=== PATIENT | male | born 1935 | race African-American/Black ===

== ENCOUNTER 2019-10-17 14:24 | Emergency (ER) | payer MEDICARE, SELFPAY ==
--- NOTE | 2019-10-17 14:50 | XR_ITS ---
PROCEDURE: XR KNEE RT 3V CLINICAL INDICATION: pain COMPARISON: 01/07/2013 FINDINGS: There is mild degenerative narrowing of the lateral compartment. There is ossification of the quadriceps tendinous insertion into the patella. Joint spaces are intact. There is no fracture or dislocation. IMPRESSION: Mild degenerative changes as above, no fracture. Dictated by: Cesar Linder 10/17/2019 16:20 Electronically signed by Cesar Linder in [place] 10/17/2019 16:20
[2019-10-17 14:53] VITALS: BP 147/91; PULSE 72; RESP 19; TEMP 36.8; O2SAT 99; BMI 23.8
--- NOTE | 2019-10-17 15:22 | HMH.EDUTC ---
[facility] [place] Disposition Clinical Impression: Pseudogout Disposition: Home, Self-Care Condition on Discharge: Good Instructions: Gout (Alternative Therapy), Gout, DI for Gout, DI for Arthritis Additional Instructions: Take medication as prescribed *Return if needed Straight to ER if any life threatening symptoms Follow up with Family Doctor if no improvement or any worsening of symptoms Prescriptions: methylPREDNISolone [Medrol 4mg tab] 4 mg PO DIRECTED #21 tab Transmission Status: Received by [facility] Referrals: Provider,Referral, MD [Primary Care Provider] - As needed Time of Disposition: 16:25 Medical Decision Making - Jean Pierre Inquiry Pt receiving controlled substance: No Jean Pierre was queried for this patient: No Vital Signs: 10/17/19 14:53 Temperature 98.2 F Temperature Source Oral Pulse Rate [Right Brachial] 72 Respiratory Rate 19 Blood Pressure [Right Arm] 147/91 H Blood Pressure Mean [Right Arm] 109 Blood Pressure Source [Right Arm] Automatic Cuff Blood Pressure Position [Right Arm] Sitting 02 Sat by Pulse Oximetry 99 Oxygen Delivery Method Room Air - Lab Data Lab results reviewed: Yes: I reviewed the patient's lab results. Lab Results 10/17/19 15:50: Uric Acid 6.5 Orders (Tests/Meds): ED MEDICATIONS Discontinued Medications Generic Name Dose Route Start Last Admin Trade Name Freq PRN Reason Stop Dose Admin Methylprednisolone Sodium Succinate 125 mg 10/17/19 16:22 10/17/19 16:32 Solu-Medrol 125mg/2ml Vial IM 10/17/19 16:23 125 mg ONCE ONE Administration - Radiology Data #1 Image(s): Knee Image Reviewed: Yes I reviewed the patient's radiology image Preliminary Findings: No Fracture Seen Degenerative changes [facility] [place] HPI - General Stated complaint: knee pain Time Seen by Provider: 10/17/19 15:22 Mode of Arrival: Ambulatory Source of Information: Patient Limitations: No Limitations Description of Symptoms (Recalled from Triage Doc. by RN): PATIENT C/O RIGHT KNEE PAIN SINCE THIS MORNING HEENT Symptoms (Recalled from RN notes): No Resp Symptoms (Recalled from RN notes): No Skin Symptoms (Recalled from RN notes): No MS Symptoms (Recalled from RN notes): Yes Functional Status (Recalled from RN notes): WNL - History of Present Illness Provider Complaint: Patient states that he woke up this morning with pain in his right knee States that he is not sure if he hurt it of if he has gout again States that he has had gout in the past and felt like it does now States that he had to have a shot and pills last time to get it better and wants that again States that he has been having pain when he tries to stand on it and walk Denies known injury - Related Data Previous Rx's Medication Instructions Recorded methylPREDNISolone [Medrol 4mg 4 mg PO DIRECTED #21 tab 10/17/19 tab] Allergies Allergy/AdvReac Type Severity Reaction Status Date / Time No Known Allergies Allergy Verified 10/17/19 14:56 - Worker's Comp Is this a Worker's Comp case?: No [facility] History - Hepatitis A Screen Drug use history?: No High risk sexual behaviors?: No History of sexually transmitted infection?: No Currently employed?: No Childcare worker?: No Do you have indoor plumbing?: Yes Do you have electricity?: Yes Attestation statement:: This patient has been screened for Hepatitis A risk factors. I have reviewed the patient's past medical history: Yes Medical History: Reports:: Diabetes Mellitus Type 2 - Social History Alcohol Intake: never Occupational Status: other ROS Obtained: Yes All systems reviewed & no additional complaints, Yes Systems reviewed as appropriate & no additional complaints - Allergic/Immunologic Comments: Pain in right knee that started this morning Physical Exam - General General appearance: alert, in no apparent distress - Respiratory Respiratory exam: Present: normal lung sounds bilaterally. Absent: respiratory d
[2019-10-17 16:10] LABS: Uric Acid 6.5 mg/dl (3.5-8.5)
[2019-10-17 16:41] VITALS: BP 147/91; PULSE 72; RESP 19; TEMP 36.8; O2SAT 99
== END 2019-10-17 16:42 | disposition home or self-care (01) ==
PROVIDERS: Emergency Provider Nurse Practitioner
DX: M11.261 Other chondrocalcinosis, right knee (principal); E11.9 Type 2 diabetes mellitus without complications
CPT/HCPCS: G0463; 73562; 84550; 96372; 99202

== ENCOUNTER 2020-01-23 19:36 | Emergency (ER) | payer MEDICARE, SELFPAY ==
--- NOTE | 2020-01-23 19:55 | CT_ITS ---
PROCEDURE: CT ABDOMEN PELVIS WO CON CLINICAL INDICATION: hernia inguinal inguinal hernia, difficulty urinating, COMPARISON: No exams were available for comparison TECHNIQUE: Axial images obtained with sagittal and coronal reformats. All CT scans at the facility use one or more dose reduction, viz: automated exposure control, ma/kV adjustment per patient size (including targeted exams where dose is matched to indication, i.e. head), or iterative reconstruction technique. FINDINGS: LOWER THORAX: There are mild atelectatic changes in the lung bases. Small subpleural opacity is present in the right middle lobe anteriorly nonspecific at 5 mm. Coronary artery calcifications are present. There is gynecomastia. ABDOMEN & PELVIS: The right hemidiaphragm is elevated. There is a small hiatal hernia. The liver, spleen, adrenal glands, and pancreas have an unremarkable unenhanced appearance. There are numerous bilateral renal cyst. The largest cyst on the right is 9.9 cm. The largest cyst on the left is 5.6 cm. Motion artifact obscures fine detail. No renal or ureteral calculi. There is a mild amount of retained colonic feces with extensive colonic diverticulosis the involving the descending and sigmoid colon. No evidence of diverticulitis. No evidence of appendicitis. There is a small umbilical hernia containing fat. There is a fusiform infrarenal abdominal aortic aneurysm measuring up to 4 cm and. 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 Bilateral hip osteoarthritis. There is some fat and soft tissue density within the inguinal canals on both sides. IMPRESSION: 1. No acute abdominal or pelvic findings. 2. There is thickening of the spermatic cord with fat and soft tissue density within the inguinal canals on both sides. However, a definite inguinal hernia is not demonstrated. There is a small umbilical hernia. 3. Enlarged prostate 4. Colonic diverticulosis without diverticulitis. 5. Aneurysmal dilatation of the aortoiliac vessels Dictated by: Sha Espinosa MD 01/25/2020 08:30 Sha Espinosa MD in [place] 01/25/2020 08:30
--- NOTE | 2020-01-23 19:57 | HMH.EDABDPAI ---
ED Disposition Condition on Discharge: Undetermined - Critical Care Critical Care Time: No <Tony Cabral - Last Filed: 01/23/20 19:57> Condition on Discharge: Good <Handy Hays - Last Filed: 01/23/20 22:04> Clinical Impression: AAA (abdominal aortic aneurysm) without rupture, Renal insufficiency, Prostate hypertrophy UTI (urinary tract infection) Qualifiers: Urinary tract infection type: site unspecified Hematuria presence: without hematuria Qualified Code(s): N39.0 - Urinary tract infection, site not specified Clinical Impression: (Ruled Out): Inguinal hernia Disposition: Home, Self-Care Instructions: DI for Acute Abdomen Additional Instructions: please call and see pcp and urology - Prescriptions: levoFLOXacin [Levaquin 500mg tab] 500 mg PO DAILY #7 tab Transmission Status: Pending to [facility] Referrals: PCP,Marisela [Primary Care Provider] - Kristian Cook MD [Staff Physician] - Attestation: On 01/23/20, the high probability of a clinically significant, sudden or life threatening deterioration of the following system(s) required my full and direct attention, intervention and personal management. The time I documented below is in addition to time spent performing reported procedures but includes the following listed in this critical care notation. Medical Decision Making - Jean Pierre Inquiry Pt receiving controlled substance: No <Tony Cabral - Last Filed: 01/23/20 19:57> - Lab Data Lab results reviewed: Yes: I reviewed the patient's lab results. Result diagrams: 01/23/20 20:05 01/23/20 20:05 - CT Data CT Scan: Abdomen, Pelvis Time Received: 21:[address] Reviewed: Yes: I have viewed the radiologist's interpretation Preliminary Findings: Abnormal (see report ) <Handy Hays - Last Filed: 01/23/20 22:04> Vital Signs: 01/23/20 20:10 01/23/20 20:37 01/23/20 21:00 Temperature 98.4 F Temperature Source Oral Pulse Rate [Right] 76 66 68 Respiratory Rate 16 18 18 Blood Pressure [Right Arm] 182/57 H 162/87 H 173/83 H Blood Pressure Mean [Right Arm] 98 112 113 Blood Pressure Source [Right Arm] Automatic Cuff Blood Pressure Position [Right Arm] Sitting 02 Sat by Pulse Oximetry 100 99 99 Oxygen Delivery Method Room Air Room Air 01/23/20 21:58 Temperature Temperature Source Pulse Rate [Right] 70 Respiratory Rate 18 Blood Pressure [Right Arm] 164/85 H Blood Pressure Mean [Right Arm] 111 Blood Pressure Source [Right Arm] Blood Pressure Position [Right Arm] 02 Sat by Pulse Oximetry 100 Oxygen Delivery Method - Lab Data Lab Results 01/23/20 20:05: WBC 9.2, RBC 4.68, Hgb 14.1, Hct 42.3, MCV 90.3, MCH 30.0, MCHC 33.3, RDW 14.9, Plt Count 238, MPV 8.4, Neut % (Auto) 85.9 H, Lymph % (Auto) 8.8 L, [place] % (Auto) 4.7, Eos % (Auto) 0.2, Baso % (Auto) 0.4, Neut # (Auto) 7.9 H, Lymph # (Auto) 0.8, [place] # (Auto) 0.4, Eos # (Auto) 0.0, Baso # (Auto) 0.0, Total Counted 100, Neutrophils % (Manual) 90 H, Band Neutrophils % 4.0, Lymphocytes % (Manual) 5 L, Eosinophils % (Manual) 1, Platelet Estimate Normal, RBC Morphology Normal 01/23/20 20:05: Sodium 137, Potassium 4.8, Chloride 101, Carbon Dioxide 27, Anion Gap 13.8, BUN 41 H, Creatinine 1.80 H, Estimated Creat Clear 25, Estimated GFR 36 L, Est GFR ( Amer) 44 L, Glucose 129 H, Calcium 10.2, Total Bilirubin 0.5, AST 39, ALT 13, Alkaline Phosphatase 84, Total Protein 8.1, Albumin 4.7, Globulin 3.4 H, Albumin/Globulin Ratio 1.4 01/23/20 20:05: Lactate 0.7 01/23/20 21:30: Urine Color Yellow, Urine Appearance Clear, Urine pH 5.5, Ur Specific [place] 1.025, Urine Protein 2+, Urine Glucose (UA) Negative, Urine Ketones Negative, Urine Blood 1+, Urine Nitrate Negative, Urine Bilirubin Negative, Urine Urobilinogen 0.2, Ur Leukocyte Esterase Negative, Urine RBC 5-10, Urine WBC 10-20, Ur Squamous Epith Cells 3-5 Orders (Tests/Meds): ED MEDICATIONS Generic Name Dose Route Start Last Admin Trade Name Freq PRN Reason Stop Do
[2020-01-23 20:10] VITALS: BP 182/57; PULSE 76; RESP 16; TEMP 36.9; O2SAT 100; BMI 21.6
[2020-01-23 20:16] LABS: Basophils % 0.4 % (0.1-2.0); Eosinophils % 0.2 % (0.1-12.0); Hematocrit 42.3 % (42.0-52.0); Hemoglobin 14.1 g/dL (14.1-18.0); Lymphocytes # 0.8 K/mm3 (0.7-4.5); Lymphocytes % 8.8 % (10-50); Mean Corpuscular HGB Conc 33.3 g/dL (31.8-35.4); Mean Corpuscular Volume 90.3 fl (80-94); Mean Platelet Volume 8.4 fl (7.4-10.4); Monocytes # 0.4 K/mm3 (0.1-1.0); Monocytes % 4.7 % (1.7-9.3); Neutrophils # 7.9 K/mm3 (1.8-7.8); Neutrophils % 85.9 % (37.0-80.0); Platelet Count 238 K/mm3 (142-424); Red Blood Count 4.68 M/mm3 (4.60-6.20); Red Cell Distribution Width 14.9 % (11.5-17.5); White Blood Count 9.2 K/mm3 (4.8-10.8)
[2020-01-23 20:21] LABS: MANUAL DIFFERENTIAL MANUAL DIFFERENTIAL (MANUAL DIFF)
[2020-01-23 20:24] LABS: Alanine Aminotransferase 13 U/L (12-78); Albumin Level 4.7 g/dl (3.5-5.0); Albumin/Globulin Ratio 1.4 (1.1-1.8); Alkaline Phosphatase 84 U/L (38-126); Anion Gap 13.8 mEq/L (5-15); Aspartate Amino Transferase 39 U/L (17-59); Bilirubin,Total 0.5 mg/dl (0.2-1.3); Blood Urea Nitrogen 41 mg/dl (9-20); Calcium 10.2 mg/dl (8.4-10.2); Carbon Dioxide 27 mmol/L (22.0-30.0); Chloride 101 mmol/L (98-107); Creatinine Clearance Estimated 25 mL/min (50-200); Estimated Glomerular Filt Rate 36 ml/min (>60); GFR (African American) 44 ML/MIN (>60); Globulin 3.4 g/dL (1.3-3.2); Glucose 129 mg/dl (74-100); Potassium 4.8 mmoL/L (3.5-5.1); Sodium 137 mmol/L (136-145); Total Protein,Serum 8.1 g/dl (6.3-8.2)
[2020-01-23 20:25] LABS: Lactic Acid 0.7 mmol/L (0.7-2.1)
[2020-01-23 20:37] VITALS: BP 162/87; PULSE 66; RESP 18; O2SAT 99
[2020-01-23 20:51] LABS: Eosinophils % 1 % (0-3); Lymphocytes % 5 % (10-50); Neutrophils % 90 % (42-76); Platelet Estimate Normal; RBC Morphology Normal; Total Cells Counted 100
[2020-01-23 21:00] VITALS: BP 173/83; PULSE 68; RESP 18; O2SAT 99
[2020-01-23 21:37] LABS: Microscopic, Urine URINE MICROSCOPIC (MICROSCOPIC)
[2020-01-23 21:46] LABS: Appearance,Urine CLEAR (Clear); Bilirubin,Urine Negative (Negative); Blood, Urine 1+ (Negative); Color,Urine YELLOW (Yellow); Glucose,Urine (UA) Negative (Negative); Ketones,Urine Negative (Negative); Leukocyte Esterase,Urine Negative (Negative); Nitrate,Urine Negative (Negative); PH,Urine 5.5 (5.0-8.5); Protein,Urine 2+ (Negative); Specific Gravity, Urine 1.025 (1.005-1.030); Urobilinogen,Urine 0.2 EU/dl (0.2)
[2020-01-23 21:58] VITALS: BP 164/85; PULSE 70; RESP 18; O2SAT 100
[2020-01-23 22:15] VITALS: BP 164/75; PULSE 68; RESP 16; TEMP 36.9; O2SAT 99
== END 2020-01-23 22:19 | disposition home or self-care (01) ==
PROVIDERS: Emergency Medicine; Emergency Provider Student in an Organized Health Care Education/Training Program
DX: I71.4 Abdominal aortic aneurysm, without rupture (principal); N28.9 Disorder of kidney and ureter, unspecified; N40.0 Benign prostatic hyperplasia without lower urinary tract symptoms; E11.9 Type 2 diabetes mellitus without complications; N39.0 Urinary tract infection, site not specified; Z79.899 Other long term (current) drug therapy
CPT/HCPCS: 74176; 80053; 81001; 83605; 85007; 85025; 87086; 96365; 96375; 99284; J2405

== ENCOUNTER → 2020-01-26 12:51 | Outpatient (CLI) | payer MEDICARE, SELFPAY ==
[2020-01-26 13:13] LABS: Basophils % 0.1 % (0.1-2.0); Eosinophils % 0.5 % (0.1-12.0); Hematocrit 41.6 % (42.0-52.0); Hemoglobin 13.5 g/dL (14.1-18.0); Lymphocytes # 1.1 K/mm3 (0.7-4.5); Lymphocytes % 13.1 % (10-50); Mean Corpuscular HGB Conc 32.4 g/dL (31.8-35.4); Mean Corpuscular Hemoglobin 29.9 pg (27.0-31.2); Mean Corpuscular Volume 92.5 fl (80-94); Mean Platelet Volume 8.3 fl (7.4-10.4); Monocytes # 0.5 K/mm3 (0.1-1.0); Monocytes % 5.7 % (1.7-9.3); Neutrophils # 6.5 K/mm3 (1.8-7.8); Neutrophils % 80.6 % (37.0-80.0); Platelet Count 233 K/mm3 (142-424); Red Blood Count 4.49 M/mm3 (4.60-6.20); Red Cell Distribution Width 14.8 % (11.5-17.5); White Blood Count 8.1 K/mm3 (4.8-10.8)
[2020-01-26 14:42] LABS: Alanine Aminotransferase 12 U/L (12-78); Albumin Level 4.1 g/dl (3.5-5.0); Albumin/Globulin Ratio 1.5 (1.1-1.8); Alkaline Phosphatase 61 U/L (38-126); Anion Gap 14.7 mEq/L (5-15); Aspartate Amino Transferase 37 U/L (17-59); Bilirubin,Total 0.5 mg/dl (0.2-1.3); Blood Urea Nitrogen 43 mg/dl (9-20); Carbon Dioxide 25 mmol/L (22.0-30.0); Chloride 104 mmol/L (98-107); Estimated Glomerular Filt Rate 32 ml/min (>60); GFR (African American) 39 ML/MIN (>60); Globulin 2.8 g/dL (1.3-3.2); Glucose 105 mg/dl (74-100); Potassium 4.7 mmoL/L (3.5-5.1); Sodium 139 mmol/L (136-145); Total Protein,Serum 6.9 g/dl (6.3-8.2)
[2020-01-28 13:19] LABS: PSA, Free 4.85 ng/mL; Prostate Specific Ag 49.1 ng/mL (0.0-4.0)
== END ==
PROVIDERS: Visit Provider Urology
DX: N40.2 Nodular prostate without lower urinary tract symptoms (principal); M11.20 Other chondrocalcinosis, unspecified site
CPT/HCPCS: 36415; 80053; 84153; 84154; 85025

== ENCOUNTER 2020-11-16 09:31 | Emergency (ER) | payer MEDICARE, SELFPAY ==
[2020-11-16 09:32] VITALS: BP 157/76; PULSE 65; RESP 18; TEMP 36.8; O2SAT 97; BMI 25.1
--- NOTE | 2020-11-16 09:43 | CT_ITS ---
PROCEDURE: CT ABDOMEN PELVIS WO CON CLINICAL INDICATION: abdominal pain Bright red clots in stool COMPARISON: CT CT ABDOMEN PELVIS WO CON from 01/23/2020 TECHNIQUE: Axial images obtained with sagittal and coronal reformats. All CT scans at the facility use one or more dose reduction, viz: automated exposure control, ma/kV adjustment per patient size (including targeted exams where dose is matched to indication, i.e. head), or iterative reconstruction technique. FINDINGS: LOWER THORAX: No acute finding ABDOMEN & PELVIS: The liver, spleen, gallbladder, and adrenal glands have an unremarkable appearance. There are low bilateral renal cysts the largest cyst on the right at 10 cm not significantly changed. No renal calculi apparent. There is an infrarenal abdominal aortic aneurysm which measures 3.5 cm transverse and 4.2 cm AP. The aorta is 3 cm at its bifurcation. There is dilatation of the proximal common iliacs at 2.3 cm on the right and 2.3 cm on the left. The measurements of the aortic aneurysm and the dilated iliacs are not significantly changed. There is no evidence of acute retroperitoneal hemorrhage. Stomach is slightly distended with retained food products and or secretions. Unremarkable appearing pancreas. No renal calculi or hydronephrosis. No evidence of appendicitis. There is colonic diverticulosis but no evidence of diverticulitis. No evidence of small-bowel obstruction. No free air. No pelvic mass or abnormal pelvic fluid collection. The prostate is prominent at 4.8 cm. There are surgical clips in the right inguinal region. There is mild diffuse thickening of the urinary bladder wall. Postsurgical changes are present from prior laminectomy and inter pedicular screw placement at L3-L4 and L5. No lytic or blastic changes. IMPRESSION: 1. 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 2. Diffuse colonic diverticulosis. No evidence of diverticulitis. 3. There is mild urinary bladder wall thickening which may be seen with incomplete distension, chronic outflow obstruction, or cystitis. Dictated by: Sha Espinosa MD 11/16/2020 10:54 Sha Espinosa MD in [place] 11/16/2020 10:54
[2020-11-16 10:05] LABS: Basophils % 0.1 % (0.1-2.0); Eosinophils % 0.6 % (0.1-12.0); Hematocrit 36.7 % (42.0-52.0); Hemoglobin 11.1 g/dL (14.1-18.0); Lymphocytes # 1.1 K/mm3 (0.7-4.5); Lymphocytes % 19.1 % (10-50); Mean Corpuscular HGB Conc 30.4 g/dL (31.8-35.4); Mean Corpuscular Hemoglobin 27.3 pg (27.0-31.2); Mean Corpuscular Volume 89.8 fl (80-94); Mean Platelet Volume 8.4 fl (7.4-10.4); Monocytes # 0.4 K/mm3 (0.1-1.0); Monocytes % 6.7 % (1.7-9.3); Neutrophils # 4.1 K/mm3 (1.8-7.8); Neutrophils % 73.4 % (37.0-80.0); Platelet Count 230 K/mm3 (142-424); Red Blood Count 4.09 M/mm3 (4.60-6.20); Red Cell Distribution Width 14.8 % (11.5-17.5); White Blood Count 5.6 K/mm3 (4.8-10.8)
[2020-11-16 10:11] LABS: Chloride 111 mmol/L (98-107)
[2020-11-16 10:12] LABS: Potassium 4.7 mmoL/L (3.5-5.1); Sodium 142 mmol/L (136-145)
[2020-11-16 10:14] LABS: Alanine Aminotransferase 13 U/L (12-78); Alkaline Phosphatase 168 U/L (38-126); Anion Gap 13.7 mEq/L (5-15); Aspartate Amino Transferase 37 U/L (17-59); Bilirubin,Total 0.3 mg/dl (0.2-1.3); Blood Urea Nitrogen 45 mg/dl (9-20); Carbon Dioxide 22 mmol/L (22.0-30.0); Creatinine Clearance Estimated 31 mL/min (50-200); Estimated Glomerular Filt Rate 34 ml/min (>60); GFR (African American) 41 ML/MIN (>60); Lipase 267 U/L (23-300)
[2020-11-16 10:15] LABS: Albumin Level 3.9 g/dl (3.5-5.0); Albumin/Globulin Ratio 1.3 (1.1-1.8); Calcium 8.9 mg/dl (8.4-10.2); Globulin 2.9 g/dL (1.3-3.2); Glucose 117 mg/dl (74-100); Total Protein,Serum 6.8 g/dl (6.3-8.2)
[2020-11-16 10:16] LABS: Prothrombin Time 11.3 seconds (10.1-12.5)
[2020-11-16 10:22] LABS: INR 0.95 (0.9-1.1)
--- NOTE | 2020-11-16 10:26 | PC.NURSE ---
marissa in radiology called states she spoke with Dr. Espinosa, he wants CT done with out contrast r/t pt labs. Notified ER of this.
--- NOTE | 2020-11-16 10:28 | PC.NURSE ---
LANA MATA speaking with radiologist.
--- NOTE | 2020-11-16 10:28 | PC.NURSE ---
pt to CT
--- NOTE | 2020-11-16 10:42 | HMH.EDGENADL ---
ED Disposition Clinical Impression: Rectal bleeding, Diverticulosis Disposition: Home, Self-Care Condition on Discharge: Good Instructions: DI for Rectal Bleeding, DI for Gastrointestinal Bleeding Additional Instructions: Return to the ED for any fever, severe abdominal pain, dizziness, shortness of breath, palpitations, or any other new or worsening symptoms. Follow-up with Dr. Lucero with gastroenterology. Prescriptions: polyethylene glycoL 3350 [Miralax 17gm Packet] 17 gm PO DAILYP PRN #60 packet PRN Reason: Constipation Transmission Status: Received by [id number] Referrals: Provider,MD Delmy [Primary Care Provider] - Alexandro Lucero MD [Staff Physician] - 3 days (rectal bleeding significant diverticulosis hx, hgb stable) - Critical Care Critical Care Time: No Attestation: On 11/16/20, the high probability of a clinically significant, sudden or life threatening deterioration of the following system(s) required my full and direct attention, intervention and personal management. The time I documented below is in addition to time spent performing reported procedures but includes the following listed in this critical care notation. Medical Decision Making - Medical Records Medical records reviewed: Yes: I reviewed the patient's medical records. - Jean Pierre Inquiry Pt receiving controlled substance: No Vital Signs: 11/16/20 09:32 11/16/20 10:49 11/16/20 11:56 Temperature 98.3 F 98 F Temperature Source Oral Oral Pulse Rate 55 L 73 Pulse Rate [Right] 65 Respiratory Rate 18 18 20 Blood Pressure 150/77 H 109/64 L Blood Pressure [Right Arm] 157/76 H Blood Pressure Mean [Right Arm] 103 Blood Pressure Source Automatic Cuff Blood Pressure Position Sitting Sitting 02 Sat by Pulse Oximetry 97 100 Oxygen Delivery Method Room Air Room Air Room Air - Lab Data Lab Results 11/16/20 09:56: WBC 5.6, RBC 4.09 L, Hgb 11.1 L, Hct 36.7 L, MCV 89.8, MCH 27.3, MCHC 30.4 L, RDW 14.8, Plt Count 230, MPV 8.4, Neut % (Auto) 73.4, Lymph % (Auto) 19.1, [place] % (Auto) 6.7, Eos % (Auto) 0.6, Baso % (Auto) 0.1, Neut # (Auto) 4.1, Lymph # (Auto) 1.1, [place] # (Auto) 0.4, Eos # (Auto) 0.0, Baso # (Auto) 0.0 11/16/20 09:56: PT 11.3, INR 0.95 11/16/20 09:56: Sodium 142, Potassium 4.7, Chloride 111 H, Carbon Dioxide 22, Anion Gap 13.7, BUN 45 H, Creatinine 1.90 H, Estimated Creat Clear 31, Estimated GFR 34 L, Est GFR ( Amer) 41 L, Glucose 117 H, Calcium 8.9, Total Bilirubin 0.3, AST 37, ALT 13, Alkaline Phosphatase 168 H, Total Protein 6.8, Albumin 3.9, Globulin 2.9, Albumin/Globulin Ratio 1.3 11/16/20 09:56: Lipase 267 Result diagrams: 11/16/20 09:56 11/16/20 09:56 Orders (Tests/Meds): ED MEDICATIONS Discontinued Medications Generic Name Dose Route Start Last Admin Trade Name Freq PRN Reason Stop Dose Admin Sodium Chloride 1,000 mls @ 999 mls/hr 11/16/20 09:45 11/16/20 10:14 Sod Chlor 0.9% 1000ml Bag IV 11/16/20 10:45 999 mls/hr .Q1H1M HERNAN Administration Medical Decision Narrative: 85-year-old male with new onset of bright red blood per rectum with hematochezia. Patient is well-appearing nontoxic on initial examination hemodynamically stable with no vital sign consistent with severe anemia. He is not having exertional shortness of breath or palpitations. Laboratory data demonstrates hemoglobin of 12. Patient was given IV fluid bolus [address] scan is consistent with previous scans demonstrating significant diverticulosis with no evidence of diverticulitis. Suspect that he has had a bleeding diverticulum and as he has had no recurrence of the symptoms will instruct him to use MiraLAX to prevent constipation and give follow-up with Dr. Lucero with gastroenterology. Patient remained stable throughout the duration of ED care felt better after the IV fluid bolus and was comfortable with the plan of care. General Adult HPI - General Chief complaint: GI Bleed Stated com
[2020-11-16 10:49] VITALS: BP 150/77; PULSE 55; RESP 18; O2SAT 100
[2020-11-16 11:56] VITALS: BP 109/64; PULSE 73; RESP 20; TEMP 36.6; O2SAT 98
== END 2020-11-16 11:57 | disposition home or self-care (01) ==
PROVIDERS: Emergency Provider Student in an Organized Health Care Education/Training Program
DX: K62.5 Hemorrhage of anus and rectum (principal); K57.90 Diverticulosis of intestine, part unspecified, without perforation or abscess without bleeding; E10.9 Type 1 diabetes mellitus without complications; E78.5 Hyperlipidemia, unspecified; I10 Essential (primary) hypertension; Z79.899 Other long term (current) drug therapy
CPT/HCPCS: 74176; 80053; 83690; 85025; 85610; 96365; 99283

== ENCOUNTER 2021-11-15 12:23 | Emergency (ER) | payer MEDICARE, SELFPAY ==
--- NOTE | 2021-11-15 12:37 | HMH.EDUTC ---
[facility] [place] Clinical Impression: Right elbow tendonitis Disposition: Home, Self-Care Condition on Discharge: Good Instructions: DI for Tendinitis Additional Instructions: Rest the extremity, Wear the naya wrap for compression, Elevate the extremity as tolerated while you are resting. Take tylenol for pain. Follow up with Dr. Lopez (orthopedics). I put in a referral but you need to call his office and schedule an appointment. Follow up with your regular doctor. GO TO THE ER FOR ANY WORSENING SYMPTOMS Prescriptions: methylPREDNISolone [Medrol] 4 mg PO DIRECTED 6 Days #21 packet Transmission Status: Received by [id number] Referrals: Provider,MD Delmy [Primary Care Provider] - Cristopher Lopez MD [Staff Physician] - Time of Disposition: 13:27 Medical Decision Making - Medical Records Medical records reviewed: No: I reviewed the patient's medical records. - Jean Pierre Inquiry Pt receiving controlled substance: No Vital Signs: 11/15/21 12:40 11/15/21 13:28 Temperature 98.0 F 98.0 F Temperature Source Oral Pulse Rate 62 Pulse Rate [Left] 62 Respiratory Rate 17 17 Blood Pressure 136/71 Blood Pressure [Right Arm] 136/71 Blood Pressure Mean [Right Arm] 92 02 Sat by Pulse Oximetry 99 - Radiology Data #1 Image(s): Elbow Image Reviewed: Yes I reviewed the patient's radiology image, Yes I have reviewed radiologist's interpretation Preliminary Findings: No Fracture Seen FINAL REPORT CLINICAL HISTORY: injury/pain FINDINGS: AP, oblique, and lateral views of the right elbow were obtained. There is no prior exam for comparison. There is no acute fracture or dislocation. There is degenerative joint disease. There is a prominent olecranon spur. There is no joint effusion or other soft tissue abnormality. IMPRESSION: Degenerative joint disease with a prominent olecranon spur. If pain persists, consider an MRI. Reviewed, Interpreted and Dictated by Theresa Boone MD Transcribed by Yuridia Montano Authenticated and 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 He felt something pull in his elbow and upper arm area. Since then he has had stiffness and pain with movment of his right elbow. - Related Data Home Medications Medication Instructions Recorded Confirmed Amlodipine Besylate/Benazepril 1 cap PO DAILY 01/23/20 01/30/20 [Amlodipine-Benazepril 10-20 mg] allopurinoL [Allopurinol 100mg 100 mg PO DAILY 01/23/20 01/30/20 tablet] Previous Rx's Medication Instructions Recorded levoFLOXacin [Levaquin 500mg 500 mg PO DAILY #7 tab 01/23/20 tab] polyethylene glycoL 3350 [Miralax 17 gm PO DAILYP PRN #60 packet 11/16/20 17gm Packet] methylPREDNISolone [Medrol] 4 mg PO DIRECTED 6 Days #21 11/15/21 packet Allergies Allergy/AdvReac Type Severity Reaction Status Date / Time No Known Allergies Allergy Verified 11/15/21 12:43 [facility] History - Hepatitis A Screen Attestation statement:: This patient has been screened for Hepatitis A risk factors. I have reviewed the patient's past medical history: Yes Medical History: Reports:: Diabetes Mellitus Type 1, Hyperlipidemia, Hypertension Denies:: Diabetes Mellitus Type 2 Other Medical History: Reports: Cataracts Laterality Cases: Right: Arthroscopy Knee Other Surgeries: Yes: No Previous Surgery Amputation: No Fractures: No Comment: back surgery - Social History Smoking Status: Never smoker Alcohol Intake: current Alcohol Intake Frequency:: a few times a month Occupational Status: retired Housing: house Household Members: none Family Hx:: Cancer ROS Obtained: Yes All systems reviewed & no additi
[2021-11-15 12:40] VITALS: BP 136/71; PULSE 62; RESP 17; TEMP 36.7; O2SAT 99; BMI 23.4
--- NOTE | 2021-11-15 12:43 | XR_ITS ---
FINAL REPORT CLINICAL HISTORY: injury/pain FINDINGS: AP, oblique, and lateral views of the right elbow were obtained. There is no prior exam for comparison. There is no acute fracture or dislocation. There is degenerative joint disease. There is a prominent olecranon spur. There is no joint effusion or other soft tissue abnormality. IMPRESSION: Degenerative joint disease with a prominent olecranon spur. If pain persists, consider an MRI. Reviewed, Interpreted and Dictated by Theresa Boone MD Transcribed by Yuridia Montano Authenticated and [facility]
--- NOTE | 2021-11-15 12:43 | XR_ITS ---
FINAL REPORT CLINICAL HISTORY: pain.injury FINDINGS: RIGHT HUMERUS 2 views were obtained. There is no acute fracture of the right humerus. There are sclerotic lesions in the right coracoid process and in the humeral head. The joint spaces are intact. There is no soft tissue abnormality. IMPRESSION: No acute osseous abnormality of the right humerus. Sclerotic lesions in the right coracoid process and in the humeral head, sclerotic bone metastases is not excluded. Please correlate clinically. Reviewed, Interpreted and Dictated by Theresa Boone MD Transcribed by Yuridia Montano Authenticated and . [facility]
[2021-11-15 13:28] VITALS: BP 136/71; PULSE 62; RESP 17; TEMP 36.7
== END 2021-11-15 13:30 | disposition home or self-care (01) ==
PROVIDERS: Emergency Provider Nurse Practitioner Family
DX: M77.8 Other enthesopathies, not elsewhere classified (principal); M19.021 Primary osteoarthritis, right elbow; M79.601 Pain in right arm; I10 Essential (primary) hypertension; E10.8 Type 1 diabetes mellitus with unspecified complications; E78.5 Hyperlipidemia, unspecified; H26.9 Unspecified cataract; Z79.82 Long term (current) use of aspirin; Z80.9 Family history of malignant neoplasm, unspecified
CPT/HCPCS: 73060; 73080; 99213; G0463